=== PATIENT | male | born 1950 | race Caucasian/White ===

== ENCOUNTER 2017-11-01 07:45 | Day surgery (SDC) | payer BC ==
[~2017-11-01] VITALS: Ht 167.6 cm; Wt 100.7 kg
[~2017-11-01 07:45] MED LIST: ASPI325 PO; ASPI325EC PO; Mirapex1.5 MG PO; NAPR220 PO; OXYACE5T PO; PRAM.5 PO
== END 2017-11-01 10:31 | disposition home or self-care (01) ==
LOC: ORSCSDS 07:45
PROVIDERS: Internal Medicine Gastroenterology
PROC: 0DBK8ZX Excision of Ascending Colon, Via Natural or Artificial Opening Endoscopic, Diagnostic (ICD-10-PCS; principal; 2017-11-01 09:00)
PROC: 0DBM8ZX Excision of Descending Colon, Via Natural or Artificial Opening Endoscopic, Diagnostic (ICD-10-PCS; principal; 2017-11-01 09:00)
DX: Z86.010 Personal history of colon polyps (principal); Z80.0 Family history of malignant neoplasm of digestive organs; D12.4 Benign neoplasm of descending colon; D12.2 Benign neoplasm of ascending colon; Z87.891 Personal history of nicotine dependence
CPT/HCPCS: 88305; J0330; J1980; J2405; J7120

== ENCOUNTER 2020-07-31 11:42 | Day surgery (SDC) | payer MEDICARE, BC ==
[~2020-07-31] VITALS: Ht 167.6 cm; Wt 96.7 kg
[~2020-07-31 11:42] MED LIST changes: +NEURONTIN300 MG PO; +Ocuvite Preser1 EACH PO; +Ventolin/Prove6.7 GM INH
--- NOTE | 2020-07-31 14:20 | NUR ---
07/31/20 1420 Kaylee Soler LATE ENTRY PATIENT REFUSED MULTIPLE OFFERS OF PO FLUIDS
[2020-08-02] MEDS ORDERED: Ocuvite Preser1 EACH PO (08:20)
== END 2020-07-31 14:13 | disposition home or self-care (01) ==
LOC: ORSCSDS 11:42
PROVIDERS: Internal Medicine Gastroenterology
PROC: 0DBM8ZX Excision of Descending Colon, Via Natural or Artificial Opening Endoscopic, Diagnostic (ICD-10-PCS; principal; 2020-07-31 13:00)
DX: K62.5 Hemorrhage of anus and rectum (principal); D12.4 Benign neoplasm of descending colon; Z86.010 Personal history of colon polyps; Z80.0 Family history of malignant neoplasm of digestive organs; Z87.891 Personal history of nicotine dependence; E66.9 Obesity, unspecified; Z68.35 Body mass index [BMI] 35.0-35.9, adult; Z79.899 Other long term (current) drug therapy
CPT/HCPCS: 88305; J2704; J7120

== ENCOUNTER 2020-08-12 12:11 | Day surgery (SDC) | payer MEDICARE, BC ==
[~2020-08-12] VITALS: Ht 167.6 cm; Wt 99.1 kg
== END 2020-08-12 14:32 | disposition home or self-care (01) ==
LOC: ORSCSDS 12:11
PROVIDERS: Orthopaedic Surgery
PROC: 01N50ZZ Release Median Nerve, Open Approach (ICD-10-PCS; principal; 2020-08-12 13:15)
DX: G56.01 Carpal tunnel syndrome, right upper limb (principal); I10 Essential (primary) hypertension; E78.5 Hyperlipidemia, unspecified; J45.909 Unspecified asthma, uncomplicated; Z87.891 Personal history of nicotine dependence; E66.9 Obesity, unspecified; Z68.35 Body mass index [BMI] 35.0-35.9, adult; Z79.899 Other long term (current) drug therapy
CPT/HCPCS: J0690; J2250; J3010; J3370; J7120

== ENCOUNTER → 2020-09-23 | Outpatient (CLI) | payer MEDICARE, BC | LOC: LAB SHORT 12:56 → PLD 12:56 | DX: D22.5 Melanocytic nevi of trunk (principal) | CPT/HCPCS: 88305 ==

== ENCOUNTER → 2022-12-17 | Outpatient (CLI) | payer MEDICARE, OTHER | END | disposition home or self-care (01) | LOC: PLD 10:52 → LAB SHORT 10:52 | DX: D22.5 Melanocytic nevi of trunk (principal) | CPT/HCPCS: 88305 ==

== ENCOUNTER → 2022-12-31 | Outpatient (CLI) | payer MEDICARE, OTHER | LOC: LAB SHORT 14:53 → PLD 14:53 | DX: D48.5 Neoplasm of uncertain behavior of skin (principal) | CPT/HCPCS: 88304 ==